=== PATIENT | female | born 1980 | race Caucasian/White ===

== ENCOUNTER → 2016-04-30 | Outpatient (CLI) | payer BC | LOC: MW.CHOBGYN 10:21 | PROVIDERS: ATTEND Advanced Practice Midwife | DX: Z32.00 Encounter for pregnancy test, result unknown (principal) | CPT/HCPCS: 36415; 84702; 85025 ==

== ENCOUNTER 2016-05-11 22:41 | Emergency (ER) | payer BC ==
--- NOTE | 2016-05-11 22:59 | EDM.PDOC ---
ED HPI Trauma - General Chief Complaint: Lower Extremity Injury/Pain Stated Complaint: FALL/PAIN LT ANKLE Time Seen by Provider: 05/11/16 22:57 - History of Present Illness INITIAL COMMENTS - FREE TEXT/NARRATIVE: HISTORY AND PHYSICAL: History of present illness: Patient 36-year-old white female with chief complaint of acute left ankle and foot injury status post fall Review of systems: As per history of present illness and below otherwise all systems reviewed and negative. Past medical history: As per history of present illness and as reviewed below otherwise noncontributory. Surgical history: As per history of present illness and as reviewed below otherwise noncontributory. Social history: No reported history of drug or alcohol abuse. Family history: As per history of present illness and as reviewed below otherwise noncontributory. Physical exam: HEENT: Atraumatic, normocephalic, pupils reactive, negative for conjunctival pallor or scleral icterus, mucous membranes moist, throat clear, neck supple, nontender, trachea midline. Lungs: Clear to auscultation, breath sounds equal bilaterally, chest nontender. Heart: S1S2, regular, negative for clicks, rubs, or JVD. Abdomen: Soft, nondistended, nontender. Negative for masses or hepatosplenomegaly. Negative for costovertebral tenderness. Pelvis: Stable nontender. Genitourinary: Deferred. Rectal: Deferred. Extremities: Tenderness to palpation of her left ankle this is nonlocalized no crepitation no gross bony Achilles tendon is intact CMS neurovascular normal Neuro: Awake, alert, oriented. Cranial nerves II through XII unremarkable. Cerebellum unremarkable. Motor and sensory unremarkable throughout. Exam nonfocal. Diagnostics: X-ray left foot/ Therapeutics: To be determined Impression: Number acute left foot/ankle injury Definitive disposition and diagnosis as appropriate pending reevaluation and review of above. Allergies/ADRs: Allergies latex Allergy (Verified 05/11/16 22:58) Anaphylactic Shock Sulfa (Sulfonamide Antibiotics) Allergy (Verified 05/11/16 22:58) Swelling Home Medications: Ambulatory Orders . [No Known Home Meds] 05/11/16 [Confirmed 05/11/16] Review of Systems - Review of Systems Review Of Systems: ROS reveals no pertinent complaints other than HPI. Trauma Exam - Physical Exam Exam: See Below (See dictation) Course - Vital Signs Last Recorded V/S: Last Vital Signs Temp 36.2 C 05/11/16 22:58 Pulse 91 05/11/16 22:58 Resp 18 05/11/16 22:58 BP 143/76 H 05/11/16 22:58 Pulse Ox 100 05/11/16 22:58 - Orders/Labs/Meds Orders: Active Orders 24 hr Category Date Time Status Ankle Min 3V Lt [CR] Stat Exams 05/11/16 22:48 Ordered Foot Comp Min 3V Lt [CR] Stat Exams 05/11/16 22:48 Ordered Ketorolac [Toradol] Med 05/11/16 23:04 Once 60 mg IM ONETIME ONE Medication Orders Ketorolac Tromethamine (Toradol) 60 mg IM ONETIME ONE Stop: 05/11/16 23:05 Meds: Medications Generic Name Dose Route Start Last Admin Trade Name Giorgio PRN Reason Stop Dose Admin Ketorolac Tromethamine 60 mg 05/11/16 23:04 Toradol IM 05/11/16 23:05 ONETIME ONE Departure - Departure Time of Disposition: 23:05 Disposition: Home, Self-Care 01 Condition: good Clinical Impression: Ankle injury Forms: ED Department Discharge Additional Instructions: The following information is given to patients seen in the emergency department who are being discharged to home. This information is to outline your options for follow-up care. We provide all patients seen in our emergency department with a follow-up referral. The need for follow-up, as well as the timing and circumstances, are variable depending upon the specifics of your emergency department visit. If you don't have a primary care physician on staff, we will provide you with a referral. We always advise you to contact your personal physician following an emergency department visit to inform them of the circumstance of the visit and for follow-up with them and/or the need for any referrals to a consulting specialist. The emergency department will also refer you to a specialist when appropriate. This referral assures that you have the opportunity for followup care with a specialist. All of these measure are taken in an effort to provide you with optimal care, which includes your followup. Under all circumstances we always encourage you to contact your private physician who remains a resource for coordinating your care. When calling for followup care, please make the office aware that this follow-up is from your recent emergency room visit. If for any reason you are refused follow-up, please contact the [facility] emergency department at and asked to speak to the emergency department charge nurse. Star wrap as directed crutches as directed Motrin or Tylenol as directed follow up primary medical doctor within 2 days return as needed as discussed - My Orders Last 24 Hours: My Active Orders 05/11/16 22:48 Ankle Min 3V Lt [CR] Stat Foot Comp Min 3V Lt [CR] Stat 05/11/16 23:04 Ketorolac [Toradol] 60 mg IM ONETIME ONE - Assessment/Plan Last 24 Hours: My Active Orders 05/11/16 22:48 Ankle Min 3V Lt [CR] Stat Foot Comp Min 3V Lt [CR] Stat 05/11/16 23:04 Ketorolac [Toradol] 60 mg IM ONETIME ONE
[2016-05-11] MEDS ORDERED: Ketorolac 60 MG/2 ML SDV IM ONE (23:04)
[2016-05-11 23:42] VITALS: BP 119/77
--- NOTE | 2016-05-14 15:41 | CR ---
MEXAM DATE: 05/11/16 PATIENT'S AGE: 36 Patient: ELIJAH SILVA Facility: [place], [place] Site . Site : 1980 Study: XRay Extremity ankle [id number]/[id number] 11:06:13 PM Ordering Physician: Doctor Boggs Final Report: INDICATION: fall, pain TECHNIQUE: Left ankle 3 views. COMPARISON: None. FINDINGS: Bones: Alignment is normal. No fractures or bone lesions. Joint spaces: Unremarkable. Soft tissues: Unremarkable. IMPRESSION: Unremarkable left ankle. Dictated by: Octaviano Woods MD @ 05/11/2016 23:13:20 (Electronic Signature) Report Signed by Proxy and Original Signed Document filed in the Medical Record. [facility]TDD
--- NOTE | 2016-05-14 15:42 | CR ---
EXAM DATE: 05/11/16 PATIENT'S AGE: 36 Patient: ELIJAH SILVA Facility: [place], [place] Site . Site : 1980 Study: XRay Extremity foot [id number]/24/2017 11:06:30 PM Ordering Physician: Doctor Boggs Final Report: INDICATION: fall TECHNIQUE: Left foot 3 views COMPARISON: None. FINDINGS: Bones: Alignment is normal. No fractures or bone lesions. Joint spaces: Unremarkable. Soft tissues: Unremarkable. IMPRESSION: Unremarkable left foot. Dictated by: Octaviano Woods MD @ 05/11/2016 23:14:01 (Electronic Signature) Report Signed by Proxy and Original Signed Document filed in the Medical Record. [facility]
== END 2016-05-11 23:38 | disposition home or self-care (01) ==
LOC: MW.ED 22:41
DX: S99.912A Unspecified injury of left ankle, initial encounter (principal); Z88.2 Allergy status to sulfonamides; Z91.040 Latex allergy status; W19.XXXA Unspecified fall, initial encounter
CPT/HCPCS: 73610; 73630; 99283; J1885

== ENCOUNTER → 2016-06-14 | Outpatient (CLI) | payer BC | LOC: MW.CHOBGYN 14:32 | PROVIDERS: ATTEND Advanced Practice Midwife | DX: Z32.00 Encounter for pregnancy test, result unknown (principal) | CPT/HCPCS: 36415; 84702 ==